=== PATIENT | male | born 1970 | race Caucasian/White ===

== ENCOUNTER 2020-05-26 07:18 | Day surgery (SDC) | payer OTHER ==
[~2020-05-26 07:18] MED LIST: cefTRIAXone 2 GM VIAL ONE
--- NOTE | 2020-05-26 07:56 | ANESTHESIA ---
Pre-Anesthesia VS, & Labs - Diagnosis Right AC Joint Arthritis, - Procedure Open Distal Clavicle Resection Vital Signs: Temp Pulse Resp BP Pulse Ox 36.5 C 91 18 146/87 H 98 05/26/20 07:29 05/26/20 07:29 05/26/20 07:29 05/26/20 07:29 05/26/20 07:29 Height: 5 ft 8 in Weight (kg): 77.11 kg Body Mass Index: 25.8 BMI Classification: Overweight - NPO >8 hours - Lab Results Lab results reviewed: Yes Home Medications and Allergies Home Medications: Ambulatory Orders Multivitamin 1 each PO 05/19/20 Ibuprofen [Motrin] 800 mg PO Q8H PRN 09/18/15 Multivitamin 1 each PO 05/19/20 Allergies/Adverse Reactions: Allergies Allergy/AdvReac Type Severity Reaction Status Date / Time No Known Drug Allergies Allergy Verified 05/19/20 10:42 Anes History & Medical History - Anesthetic History Anesthesia Complications: reports: No previous complications Family history of Anesthesia Complications: Denies Family history of Malignant Hyperthermia: Denies - Medical History Cardiovascular: reports: None Pulmonary: reports: Sleep apnea Gastrointestinal: reports: None Urinary: reports: None Musculoskeletal: reports: Other Endocrine/Autoimmune: reports: None Skin: reports: None - Surgical History Orthopedic: Arthroscopic surgery Exam General: Alert, Oriented x3, Cooperative, No acute distress Dental: WNL Mouth Openin Fingerbreadth Neck Mobility: Normal Mallampati classification: II Respiratory: Lungs clear, Normal breath sounds, No respiratory distress, No accessory muscle use Cardiovascular: Regular rate, Normal S1, Normal S2, No murmurs Plan Anesthesia Type: General Consent for Procedure(s) Verified and Reviewed: Yes Code Status: Attempt Resuscitation ASA classification: 1-Healthy patient Is this case an emergency?: No
[2020-05-26] MEDS ORDERED: BUPIVACAINE 0.5% PF 30 ML VIAL ONE (07:58)
[2020-05-26] MEDS ORDERED: LIDOCAINE 1%-EPI 1:100000 20 ML MDV ONE (07:58)
[2020-05-26] MEDS ORDERED: LACTATED RINGERS 1,000 ML IV ONE ×2 (08:03→10:17)
[2020-05-26] MEDS ORDERED: BUPIVACAINE 0.25% PF 30 ML VIAL ONE (08:48)
[2020-05-26] MEDS ORDERED: LIDOCAINE 1%-EPI 1:100000 30 ML MDV SUBQ ONE (09:16)
[2020-05-26] MEDS ORDERED: BUPIVACAINE 0.25% PF 30 ML VIAL SUBQ ONE (09:16)
[2020-05-26] MEDS ORDERED: ONDANSETRON 4 MG/2 ML VIAL IVP PRN ×2 (10:11→10:18)
[2020-05-26] MEDS ORDERED: oxyCODONE 5 MG TABLET PO PRN (10:11)
[2020-05-26] MEDS ORDERED: METOCLOPRAMIDE 10 MG/2 ML VIAL IVP PRN (10:18)
[2020-05-26] MEDS ORDERED: ePHEDrine 50 MG/ML VIAL IVP PRN (10:18)
[2020-05-26] MEDS ORDERED: MORPHINE 2 MG/ML CARPUJECT IVP PRN (10:18)
[2020-05-26] MEDS ORDERED: ATROPINE ABBOJECT 1 MG/10 ML SYRINGE IVP PRN (10:18)
[2020-05-26] MEDS ORDERED: fentaNYL 100 MCG/2 ML VIAL IVP PRN (10:18)
[2020-05-26] MEDS ORDERED: NALOXONE 0.4 MG/ML VIAL IVP PRN (10:18)
[2020-05-26] MEDS: HYDROmorphone 0.5 MG/0.5 ML SYRINGE IVP PRN ×2 (10:20→10:30)
--- NOTE | 2020-05-26 10:22 | OPERATIVE REPORT ---
Operative Report - General Procedure Date: 05/26/20 - Procedure Note Anesthesia Technique: General LMA, Local - Other Other Information/Narrative: Date of Procedure: 26 May 2020 Planned Procedure: Right open distal clavicle excision Pre-op diagnosis: Right acromioclavicular joint arthritis Procedure performed: Right open distal clavicle excision Post-op diagnosis: Right acromioclavicular joint arthritis Primary Surgeon: JUNE KELLEY Secondary Surgeon: Dmitriy Anesthesia: General, LMA with local anesthesia EBL: 25 ml IMPLANTS: None EXAM UNDER ANESTHESIA Forward flexion: 180 degrees Abduction: 170 degrees Abduction external rotation: 90 degrees Abduction internal rotation: 90 degrees POSTOPERATIVE PLAN: Discharge from same-day surgery criteria met. Start physical therapy at first postoperative appointment. [place] 0-2 weeks-Sling for comfort. OK to start gentle ROM, no lifting more thn 2 lbs with operative extremity 2-6 weeks- Gentle active ROM, no lifting more thn 5 lbs with operative extremity INDICATION FOR SURGERY: Risks of the surgery were discussed including pain, bleeding, infection, damage to nearby structures, stiffness, need for further surgeries, DVT, PE, stroke, and even . Questions answered and informed consent was signed. PROCEDURE IN DETAIL: The patient was met in the preoperative holding on the day of the procedure. Operative site was signed. Consent was verified. They desired to proceed. The patient brought to the operating room and surrendered to anesthesia. Once general anesthesia was obtained they were placed in a modified beach chair position with bony prominences well-padded. They were then prepped and draped in the standard sterile fashion. Incision was marked out centered over the palpated AC joint. The incision was covered with Ioban. A surgical timeout was held to confirm the patient procedure, identity, procedure, laterality, allergies, images, and antibiotics. All were in agreement and we proceeded. I injected the planned incision with 10 mL of 1% lidocaine with epinephrine to help with pain control as well as hemostasis. The incision was made sharply through the skin and subcutaneous tissues with a 10 blade, followed by bovie electrocautery. Metzenbaum scissors were used to develop anterior and posterior flaps at the level of the fascia. A spinal needle confirmed location of the joint. Bovie electrocautery was used to incise the fascial layer onto the surface of the clavicle, and then a driscoll elevator was used to sub periosteally elevate the tissue anteiorly and posteriorly. Baby Hohmann retractors were placed around the distal clavicle. The degenerated intra-articular disc was removed using a rongeur. The joint space was defined using a rongeur. The Bovie was used to mary out the planned resection on the distal clavicle, and then an oscillating saw was used to excise a wafer of bone from the distal clavicle. Following resection the piece measured 6 mm anteriorly and 8 mm centrally and approximately 6 mm posteriorly. Rongeurs were further used to remove any remaining disc material and to contour the bone. The superior edge was rasped to a smooth surface. I placed my finger into the improved joint space and took the arm through range of motion to include include full forward flexion, abduction and cross body adduction. The wound was then irrigated and the deep fascial/periosteal layer was closed using 0 Vicryl in interrupted [id number] fashion. Following repair of this layer the wound was again irrigated, and the platysma and deep dermal layer was closed using 0 and 2-0 Vicryl in interrupted fashion. The subcutaneous tissues were closed using 2-0 Vicryl in interrupted fashion, and the skin was closed with a running subcuticular 3-0 Monocryl. This incision was reinforced with Mastisol and Steri-Strips. An additional 10 mL of quarter percent Marcaine with epinephrine was injected into the gene-incisional soft tissues. Xeroform gauze was placed, followed by 4 x 4 gauze and OpSite dressing. The drapes were taken down, the arm was placed in a sling. Anesthesia was reversed, he was extubated, awakened and transferred to the recovery room in stable condition.
[2020-05-26] MEDS ORDERED: fentaNYL 100 MCG/2 ML VIAL ONE (10:32)
[2020-05-26] MEDS ORDERED: HYDROmorphone 0.5 MG/0.5 ML SYRINGE ONE ×2 (10:32→10:42)
[2020-05-26] MEDS ORDERED: MORPHINE 2 MG/ML CARPUJECT ONE (10:54)
[2020-05-26] MEDS ORDERED: LACTATED RINGERS 1,000 ML IV SCH (11:00)
[2020-05-26 11:21] VITALS: BP 139/94
[2020-05-26] MEDS ORDERED: ACETAMINOPHEN 325 MG TABLET PO ONE (11:23)
[2020-05-26] MEDS ORDERED: IBUPROFEN 600 MG TABLET PO ONE (11:23)
--- NOTE | 2020-05-26 11:55 | ANESTHESIA POST OP EVALUATION ---
Anesthesia Post Eval - Post Anesthesia Eval Vitals: Last Vital Signs Temp 36.3 C L 05/26/20 11:15 Pulse 84 05/26/20 11:15 Resp 15 05/26/20 11:15 BP 139/94 H 05/26/20 11:15 Pulse Ox 94 05/26/20 11:15 CV Function Including HR & BP: positive: Stable Pain Control: positive: Satisfactory Nausea & Vomiting: positive: Negative Mental Status: positive: Baseline Respiratory Status: Airway Patent Hydration Status: Satisfactory Anesthesia Complications: positive: None
== END 2020-05-26 07:19 | disposition home or self-care (01) ==
LOC: SDS 07:18
PROVIDERS: ATTEND Orthopaedic Surgery
DX: M19.011 Primary osteoarthritis, right shoulder (principal); G47.30 Sleep apnea, unspecified; Z87.891 Personal history of nicotine dependence